=== PATIENT | male | born 1990 | race Caucasian/White ===

== ENCOUNTER 2024-12-25 19:18 | Emergency (ER) | payer MEDICAID, SELFPAY ==
[2024-12-25 19:19] VITALS: BMI 27.8
--- NOTE | 2024-12-25 19:31 | XR_ITS ---
Examination: CT chest, without intravenous contrast. CT abdomen, without intravenous contrast. CT pelvis, without intravenous contrast. 2-D sagittal and coronal reconstructions. 3-D reconstructions. Date and time of exam:December 25, 20242033 hours INDICATIONS: Chest pain with sternal ball today CTDI vol (mgy) 9.3 DLP (MGycm)736 Technique: Multiple CT images, 3.0 mm slice thickness, obtained chest, abdomen, pelvis, with the high-resolution 64 slice scanner.. Sagittal and coronal 2-D reconstructions are obtained. 3-D reconstructions Low dose protocols were performed. One or more of the following dose reduction techniques were used; automated exposure control, adjustment of the mA and/or KV according to patient size, use of iterative reconstruction technique. Findings: No thoracic aortic aneurysmal dilatation Pulmonary artery segments are not enlarged No mediastinal lymphadenopathy 4 mm pulmonary nodule right upper lobe image 186 3 mm pulmonary nodule left upper lobe image 241 No pneumonia or pulmonary edema The manubrium and the body of the sternum appear intact No pneumonia or pulmonary edema No visualized liver or splenic lesion Absent gallbladder No pancreatic or adrenal mass No renal or ureteral calculi, no hydronephrosis Ureter normal size Normal appendix No bowel obstruction No diverticulitis Contracted urinary bladder Lumbar vertebral bodies bones of the pelvis intact IMPRESSION: No sternal mass is depicted Recommendation ultrasound soft tissue follow up of any palpable sternal mass Noncalcified pulmonary nodules as above, with this study as baseline recommend 6 month follow-up CT chest without contrast Normal appendix No renal or ureteral calculi, no hydronephrosis
--- NOTE | 2024-12-25 19:35 | PD.EDABDPN ---
ED Abdominal Pain RME/HPI General Chief Complaint: Abdominal Pain Stated complaint: FELT SOMETHING POP UPPER ABD Time seen by provider: 12/25/24 19:30 Arrival date/time: 12/25/24 19:18 RME / HPI RME / HPI narrative: This section includes all my notes and documentations, including HPI, PE, and ED course. Jhoan Hylton MD HPI: 34 y/o male presents with upper abdominal pain/or chest pain x several days. Pain is worse when laying down on it and pressing on it. Denies fever, nausea, and vomiting. No other complaints. ROS: All negative except as documented in HPI. Physical Exam: General: Alert and oriented. No acute distress when remaining still. Eyes: Conjunctivae and lids clear. ENT: No nasal congestion. Neck: Supple. Heart: RRR. Lungs: No respiratory distress. Good air movement. No rhonchi, wheezing, rales. Chest: Palpation of the left costovertebral angles reproduces his pain. Abdomen: Soft and nontender. Normal bowel sounds. No distension. No rebound or guarding. Back: No CVA tenderness. Skin: Warm and dry. Neuro: Alert and oriented X 3. I reviewed all diagnostic test results: My review of the Chest/Abdomen/Pelvis CT report is no acute findings. At this point, diagnoses include: Musculoskeletal chest wall pain Recommended supportive care. Based on my best medical judgment, made decision no further evaluation or treatment indicated at this time. Patient understands and agrees to the discharge instructions customized and printed, see below. Discharge instructions from Dr. Hylton: 1. After evaluation, there is no emergency. 2. Your pain is originating from the chest wall and not from an internal organ.? The chest wall has many joints and muscles between the ribs, so sprains and strains are common.?? 3. Apply ice or heat if helpful.? Tylenol/ibuprofen as needed. 4. See a private doctor on 12/27/2024 for recheck. To make sure there is no serious underlying heart condition, ask to help you get more tests for your heart that cannot be done here in the ER.? Such as Holter Monitor (cardiac monitoring at home from a day to even a month), heart stress test (on treadmill or with medication), echocardiogram (imaging of your heart structures), heart catherization (checking for blockages in your heart arteries), and a referral to see a [employer] Operator.? 5. Seek immediate medical care with worsening or with any concerns.?? Jhoan Hylton MD Related Data Home Medications ?Medication ?Instructions ?Recorded ?Confirmed omeprazole 40 mg capsule,delayed 40 mg PO QDAY 04/20/19 05/26/19 release sertraline 50 mg tablet 150 mg PO QDAY 04/20/19 05/26/19 Previous Rx's ?Medication ?Instructions ?Recorded acetaminophen 500 mg capsule 1,000 mg (2 x 500 mg) PO Q4H PRN 05/26/19 fever or pain #20 caps ibuprofen 800 mg tablet 800 mg PO Q6H PRN pain #14 tabs 05/26/19 ipratropium bromide 21 mcg (0.03 2 spray intranasal BID #30 mL 08/20/19 %) nasal spray loratadine 10 mg tablet (Allergy 10 mg PO QDAY allergy symptoms #30 08/20/19 Relief (loratadine)) tabs pseudoephedrine HCl 120 mg 120 mg PO Q12H PRN nasal 08/20/19 tablet,extended release (Sudafed congestion #14 tabs 12 Hour) acetaminophen 500 mg capsule 1,000 mg (2 x 500 mg) PO Q6H PRN 10/28/19 fever or pain #30 caps ibuprofen 800 mg tablet 800 mg PO TID PRN pain #30 tabs 10/28/19 ondansetron HCl 8 mg tablet 8 mg PO Q4HR PRN nausea and 10/30/19 (Zofran) vomiting #8 tabs hydroxyzine HCl 50 mg tablet 50 mg PO TID PRN anxiety #30 tabs 06/06/23 ibuprofen 800 mg tablet 800 mg PO TID PRN pain #30 tabs 01/12/24 baclofen 10 mg tablet 10 mg PO QDAY PRN muscle spasm #30 01/18/24 tabs Allergies Allergy/AdvReac Type Severity Reaction Status Date / Time No Known Allergies Allergy Verified 12/25/24 19:19 Review of Systems Review of Systems Systems Reviewed: All systems reviewed, normal except as documented Past Medical History Past Medical History PSYCHO/SOCIAL: Positive Depression and Anxiety OTHER HISTORY: Positive Chicken Pox Surgical History SURGICAL: Positive Eye Surgery ED Exam Narrative Physical exam: Refer to HPI above Course Quality Measures none Orders Category Date Time Status CT chest abdomen pelvis wo Stat Exams 12/25/24 19:31 Completed Vital Signs Vital signs: Vital Signs Temperature 98.0 F 12/25/24 19:46 Pulse Rate 96 12/25/24 19:46 Respiratory Rate 18 12/25/24 19:46 Blood Pressure 115/74 12/25/24 19:46 Pulse Oximetry (%) 98 12/25/24 19:46 Oxygen Delivery Method Room Air 12/25/24 19:46 Abdominal Pain MDM MDM Narrative MDM Narrative:: Scribe Attestation: IRenetta, am scribing for and in the presence of Dr. Hylton. Provider Notation: Although this document has been carefully reviewed, there may still be some phonetic and other typographical errors.? These errors are purely grammatical due to imperfections in the software program and should not be construed in any way to? compromise the substance of the patient's medical care during this visit. 34 y/o male presents with upper abdominal pain x 2 days. Pain is worse when laying down. Denies fever, nausea, and vomiting. No other complaints. Patient data External records reviewed:: [facility] previous records (Reviewed prior ED records from 04/05/24. Patient was seen for Ankle sprain and strain.) Clinical information provided by:: patient Social determinants that could affect healthcare access:: none Patient has the following chronic illnesses:: Depression, Anxiety How is presenting disease/condition affected by chronic disease/condition?: uneffected by Evaluation data The following diagnostics were reviewed and interpreted by me:: radiology exam(s) Lab and/or radiology exams considered but not ordered:: None Interpretation Summary: I reviewed all diagnostic test results: My review of the Chest/Abdomen/Pelvis CT report is no acute findings. Medications / Prescriptions Medications or Prescriptions considered but not ordered:: None Medication administrations:: N/A Consultations Consultation(s) initiated? (list below): No Diagnosis Differential diagnosis abdominal pain: abdominal pain, acute appendicitis, calculus of kidney, constipation, diverticulitis, gastroenteritis, pancreatitis and small bowel obstruction Most likely diagnosis given after review of the tests above:: Musculoskeletal chest wall pain Admission Indicated Admission indicated?: not indicated Explain why admission is indicated or not indicated:: With no severe condition, there was no indication for admission. Admission Request Was there a request for admission?: No Disposition Plan Disposition Plan: Discharge Discharge Attestation Discharge Attestation: The patient and all family members were given an opportunity to ask questions and understood the discharge instructions. Discharge instructions specifically effects, indications for sooner follow up or return to the emergency department, and the expected course of current diagnosis. Patient condition: Stable Discharge Plan Plan Patient Disposition: HOME (Self Care) Prescriptions/Referrals Prescriptions/Med Rec: No Action pseudoephedrine HCl [Sudafed 12 Hour] 120 mg tablet extended release 120 mg PO Q12H PRN (Reason: nasal congestion) Qty: 14 0RF ipratropium bromide 0.03 % spray,non-aerosol 2 spray INTRANASAL BID Qty: 30 0RF Rx Instructions: administer into each nostril; wait 30 seconds between sprays loratadine [Allergy Relief (loratadine)] 10 mg tablet 10 mg PO QDAY Qty: 30 3RF sertraline 50 mg tablet 150 mg PO QDAY Patient Comments: TAKE 3 TABLETS BY MOUTH EVERY DAY omeprazole 40 mg capsule,delayed release(DR/EC) 40 mg PO QDAY Patient Comments: TAKE ONE CAPSULE BY MOUTH EVERY MORNING FOR GERD acetaminophen 500 mg capsule 1,000 mg PO Q4H PRN (Reason: fever or pain) Qty: 20 0RF ibuprofen 800 mg tablet 800 mg PO Q6H PRN (Reason: pain) Qty: 14 0RF acetaminophen 500 mg capsule 1,000 mg PO Q6H PRN (Reason: fever or pain) Qty: 30 0RF ibuprofen 800 mg tablet 800 mg PO TID PRN (Reason: pain) Qty: 30 0RF ondansetron HCl [Zofran] 8 mg tablet 8 mg PO Q4HR PRN (Reason: nausea and vomiting) Qty: 8 0RF ibuprofen 800 mg tablet 800 mg PO TID PRN (Reason: pain) Qty: 30 0RF hydroxyzine HCl 50 mg tablet 50 mg PO TID PRN (Reason: anxiety) Qty: 30 0RF baclofen 10 mg tablet 10 mg PO QDAY PRN (Reason: muscle spasm) Qty: 30 0RF Referrals: Abilio Carmona MD [Primary Care Provider] - In 1 week Problem List Clinical Impression: Chest wall pain Patient/Caregiver Discharge Instructions Discharge Activity: activity as tolerated Education Materials: ED Chest Wall Pain, Costochondritis Additional Instructions: Discharge instructions from Dr. Hylton: 1. After evaluation, there is no emergency. 2. Your pain is originating from the chest wall and not from an internal organ.? The chest wall has many joints and muscles between the ribs, so sprains and strains are common.?? 3. Apply ice or heat if helpful.? Tylenol/ibuprofen as needed. 4. See a private doctor on 12/27/2024 for recheck. To make sure there is no serious underlying heart condition, ask to help you get more tests for your heart that cannot be done here in the ER.? Such as Holter Monitor (cardiac monitoring at home from a day to even a month), heart stress test (on treadmill or with medication), echocardiogram (imaging of your heart structures), heart catherization (checking for blockages in your heart arteries), and a referral to see a St[employer] And S[employer] Operator.? 5. Seek immediate medical care with worsening or with any concerns.?? Print Language: Sinhala Stand Alone Forms: Tiffanie Award Info., Patient Portal Info Letter
[2024-12-25 19:46] VITALS: BP 115/74; PULSE 96; RESP 18; TEMP 36.7; O2SAT 98
[2024-12-25 21:35] VITALS: RESP 16
== END 2024-12-25 21:36 | disposition home or self-care (01) ==
PROVIDERS: Emergency Provider Emergency Medicine; PCP Family Medicine
DX: R07.89 Other chest pain (principal); R91.8 Other nonspecific abnormal finding of lung field
CPT/HCPCS: 71250; 74176; 99284